=== PATIENT | male | born 1990 | race Caucasian/White ===

== ENCOUNTER → 2019-05-28 09:15 | Outpatient (CLI) | payer OTHER, SELFPAY ==
--- NOTE | 2019-05-28 | DI.RAD.S_ITS ---
PROCEDURE: FL SHOULDER INJECTION MR/CT RT INDICATIONS: PAIN IN RIGHT SHOULDER TECHNIQUE: The indications, alternatives, benefits, risks, and complications of the procedure were explained to the patient. Written informed consent was obtained and placed in the chart. The shoulder was examined fluoroscopically and a site for needle placement chosen for entry into the glenohumeral joint from an anterior approach. The skin was prepped and draped in a sterile fashion, and 1% lidocaine infiltrated from skin down to joint capsule. A spinal needle was inserted into the glenohumeral joint, and a small amount of iodinated contrast media injected to confirm intra-articular placement of the needle tip. This was followed by approximately 12 mL dilute solution of a gadolinium containing MR contrast agent. The needle was removed and a dressing was applied. The patient was given postprocedural instructions and sent to the MR suite for MR imaging. FINDINGS: A single fluoroscopic spot image demonstrates intra-articular location of injected iodinated contrast. IMPRESSION: Successful fluoroscopically guided administration of dilute Gadolinium solution into the shoulder joint for MR arthrogram. Dictated by: Walter Beard M.D. on 05/28/2019 at 11:26 Approved by: Walter Beard M.D. on 05/28/2019 at 11:27
--- NOTE | 2019-05-28 | DI.MRI.S_ITS ---
PROCEDURE: MR SHOULDER RT W CON INDICATIONS: PAIN IN RIGHT SHOULDER TECHNIQUE: After the administration of 12 mL of dilute intra-articular Gadolinium contrast, oblique coronal T1 and T2 spin echo with fat saturation, oblique sagittal T1 spin echo with and without fat saturation, oblique sagittal T2 fast spin echo with fat saturation, axial T1 spin echo with fat saturation through the shoulder. COMPARISON: None. FINDINGS: Image quality: Diagnostic. Rotator cuff: No full-thickness or high-grade partial-thickness tear of the rotator cuff is identified. There is mild increased signal involving the supraspinatus tendon without significant change. The subscapularis, infraspinatus, and teres minor tendons are intact. There is no significant atrophy of the rotator cuff muscles. Bones and bursae: No acute fracture, dislocation, or suspicious osseous lesion of the osseous structures of the shoulder are appreciated. No significant degenerative changes of the glenohumeral joint are present. [id number] degenerative changes of the acromioclavicular joint are noted. There is adequate distention of the glenohumeral joint with the injected contrast. No loose intra-articular joint bodies are identified. None of the injected contrast extends into the subacromial subdeltoid bursa. There is a small amount of fluid contained within the bursa, however. Capsule and soft tissues: There is a small posterosuperior labral tear identified that extends from the 12 o'clock position to the 2 o'clock position. No detached labral fragments are appreciated. The long head of the biceps tendon is normally positioned within the bicipital groove. Prominent thinning involving the intra-articular portion of this tendon may be congenital. Partial-thickness tearing is difficult to exclude. The superior, middle, and inferior glenohumeral ligaments are intact. IMPRESSION: 1. Small posterosuperior labral tear. 2. Mild supraspinatus tendinopathy. No significant rotator cuff tearing. 3. Thinning of the long head of the biceps tendon may be congenital or related to partial-thickness tearing. There is no complete tear. 4. [id number] degenerative changes of the acromioclavicular joint. Dictated by: Enoch Diaz M.D. on 05/28/2019 at 10:17 Approved by: Enoch Diaz M.D. on 05/28/2019 at 10:20
== END ==
DX: M25.511 Pain in right shoulder (principal); S43.431A Superior glenoid labrum lesion of right shoulder, initial encounter; M67.911 Unspecified disorder of synovium and tendon, right shoulder
CPT/HCPCS: 23350; 73222; 77002